=== PATIENT | male | born 1940 | race American Indian/Alaskan Native ===

== ENCOUNTER 2018-05-27 06:44 | Day surgery (SDC) | payer MEDICARE, OTHER ==
[2018-05-23 14:20] VITALS: BMI 21.9
--- NOTE | 2018-05-27 08:32 | CP.SDSHP ---
Same Day Surgery H & P - History Proposed Procedure: COLONSCOPY Pre-Op Diagnosis: SEE NOTES - Previous Medical/Surgical History Misc: Other Pain: 2.Mild Pain - Allergies Allergies: Allergies No Known Allergies Allergy (Verified 05/23/18 14:19) - Physical Exam General Appearance: N Vital Signs: Vital Signs 05/27/18 07:17 Temperature 97 F L Pulse Rate 80 Respiratory 17 Rate Blood Pressure 109/75 O2 Sat by Pulse 97 Oximetry Mental Status: Alert & Oriented x3 Neuro: WNL Heart: WNL Lungs: WNL GI: WNL - {Optional Preform as Required} Breast: WNL Abdomen: Other Rectal: WNL Integument: WNL : WNL Ortho: WNL ENT: WNL - Impression Pt. Evaluated Today:Candidate for Anesthesia & Procedure: Yes - Date & Time Time: 08:32 Short Stay Discharge - Short Stay Discharge Admitting Diagnosis/Reason for Visit: ENCOUNTER FOR SCREENING FOR MALIGNANT NEOPLASM OF Disposition: HOME/ ROUTINE
[2018-05-27] MEDS ORDERED: Lactated Ringer's 1,000 ML IV ONE (08:35)
[2018-05-27] MEDS ORDERED: Propofol 10 mg/ml Inj (20 ML) ONE (08:37)
[2018-05-27 09:11] VITALS: O2SAT 99
[2018-05-27 09:32] VITALS: TEMP 97
[2018-05-27 10:00] VITALS: BP 95/72; PULSE 69; RESP 16
[2018-05-27] MEDS ORDERED: Belladonna-Phenobarbital PO ONE (10:00)
== END 2018-05-27 09:45 | disposition home or self-care (01) ==
LOC: C.ENDO 06:44
PROVIDERS: ATTEND Specialist
DX: Z12.11 Encounter for screening for malignant neoplasm of colon (principal); K52.9 Noninfective gastroenteritis and colitis, unspecified; K56.699 Other intestinal obstruction unspecified as to partial versus complete obstruction; K64.8 Other hemorrhoids
CPT/HCPCS: 45380; 88305; J2704; J7120